=== PATIENT | male | born 1980 | race Caucasian/White ===

== ENCOUNTER 2023-11-27 06:55 | Day surgery (SDC) | payer BC ==
[2023-11-23 16:46] VITALS: BP 136/78
[~2023-11-27] VITALS: Ht 182.9 cm; Wt 90.9 kg
[~2023-11-27 06:55] MED LIST: ALLEGRA ALLERGY60 MG PO; CRESTOR10 MG PO; FISH OIL 1,0001 EAC6 PO; FLONASE ALLERG9.9 ML; FLOVENT HFA12 GM INH; GLUCOSA-CHOND-1 EACH PO; LIPITOR20 MG PO; OSTERA TABLET1 EACH PO; SINGULAIR10 MG PO; VP-VITE RX TAB1 EACH PO
[2023-11-27 07:15] VITALS: BP 135/88
--- NOTE | 2023-11-27 09:51 | NUR ---
11/27/23 0951 Rayne De Santiago 0940: PATIENT ARRIVES IN PACU AND IS RESPONSIVE TO BERNARD SULLIVAN'S QUESTIONS. HE RETURNS TO RESTING QUIETLY WITH HIS EYES CLOSED WHEN UNSTIMULATED. 0947: OXYGEN SATURATION REMAINS 100% ON 6L VIA MASK. OXYGEN MASK IS REMOVED AT THIS TIME. PATIENT IS AWAKE AND TALKING WITH ME. SURGICAL BONNET IS REMOVED.
--- NOTE | 2023-11-27 10:00 | NUR ---
PT ARRIVES BACK TO DAY SURGERY ALERT AND ORIENTED. PT UPDATED ON PLAN OF CARE. PT PROVIDED WATER, COFFEE, CRACKERS, AND PUDDING PER HIS REQUEST. PT'S MOTHER AND FATHER BROUGHT BACK TO THE ROOM. BED IN THE LOWEST POSITION, BED RAIL UP X1, CALL LIGHT PROVIDED.
[2023-11-27 10:01] VITALS: BP 139/79
[2023-11-27] MEDS ORDERED: COLACE100 MG PO (10:31)
[2023-11-27] MEDS ORDERED: OXYCODONE HCL5 MG PO (10:31)
--- NOTE | 2023-11-27 10:52 | NUR ---
PT UP ON THE EDGE OF THE BED. REPORTS NO DIZZINESS OR NAUSEA. PT AMBULATED TO THE RESTROOM AND BACK TO HIS ROOM. PT ABLE TO URINATE. PT DRESSING HIMSELF TO PREPARE TO GO HOME.
[2023-11-27 10:55] VITALS: BP 137/82
--- NOTE | 2023-11-27 11:00 | NUR ---
DC INSTRUCTIONS PROVIDED TO PT. ALL QUESTIONS ANSWERED. ICE PACK SENT HOME WITH PT. PT ABLE TO AMBULATE TO THE WHEELCHAIR AND IS TAKEN TO THE FRONT OF THE HOSPITAL. PT INTO THE PASSENGER SIDE OF THE VEHICLE.
--- NOTE | 2023-11-27 13:12 | OR ---
[facility] [address], [place] [address] Signed DATE OF OPERATION: 11/27/2023 SURGEON: Zander Purcell MD PREOPERATIVE DIAGNOSIS: Upper back lipoma (4.7 cm). POSTOPERATIVE DIAGNOSIS: Upper back lipoma (4.7 cm). PROCEDURE: Excision of subcutaneous mass (lipoma). ESTIMATED BLOOD LOSS: None. 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 He has had trouble with a 4.7 cm circular mass between his two shoulder blades over his spine. It is giving him trouble now even just lying on his back trying to sleep. We looked at that last year and he was not able to have it done at that time because of his job. He said it has gotten more firm and it is causing more pain. The ultrasound measured it at 4.7 cm last year. To his knowledge, it has never been infected or drained. I met with Maddie in the office. I explained to him this most likely is a lipoma. He understands the nature of the incision to remove it completely. There is risk of surgery including, but not limited to bleeding, infection, scarring, change in contour of the skin as well as recurrent lipomas in the same or other locations. He understands this was a bit large and it is right over the spine and his muscle. Therefore, we decided we will do it in the operating room under general anesthesia with good lighting and help from our OR nurses. He had expressed understanding and wished to proceed. PROCEDURE IN DETAIL: I met with Maddie and his mom in our preop area. We could all identify and easily agree on this subcutaneous mass between his two shoulder blades over the spine. We marked it appropriately. After this, Francisco was taken in the operating room and placed in the right lateral decubitus position under general LMA anesthesia. Appropriate padding and monitoring were placed. He was given preoperative antibiotics along with subcutaneous heparin. SCDs were utilized. He was prepped and draped in the usual sterile fashion. A vertical incision was made over the lesion and carried down around the lesion bluntly and with the cautery. As always, it went from the skin all the way Electronically Signed By: ZANDER PURCELL MD 11/27/23 1312 PATIENT NAME: MADDIE RUIZ OPERATIVE REPORT DATE OF : 76 REPORT #: [id number] PHYSICIAN: ZANDER PURCELL MD PCP: SARAH BLACKBURN PA-C REPORT IS CONFIDENTIAL AND NOT TO BE RELEASED WITHOUT AUTHORIZATION [facility] [address], [place] [address] Signed down to the muscle. The entire lesion was taken out en bloc and passed off the field. Local anesthetic was injected in the entire wound. The wound was irrigated and suctioned out until clear. The dermis was reapproximated with interrupted 3-0 subcuticular Monocryl sutures. The skin edges were reapproximated with a running 5-0 fast absorbing plain gut suture. Dry gauze and tape was applied. Francisco was rotated into the supine position and moved over to his hospital bed and taken into recovery room in stable condition. He was extubated in the OR. Zander Purcell MD ALB/MODL /[id number] cc: JIHAN Doan MD Copies: SARAH BLACKBURN PA-C, ANDREW L MD ~ Electronically Signed By: ZANDER PURCELL MD 11/27/23 1312 PATIENT NAME: MADDIE RUIZ OPERATIVE REPORT DATE OF : 76 REPORT #: [id number] PHYSICIAN: ZANDER PURCELL MD PCP: SARAH BLACKBURN PA-C REPORT IS CONFIDENTIAL AND NOT TO BE RELEASED WITHOUT AUTHORIZATION
--- NOTE | 2023-12-02 10:28 | PATH ---
[facility] [address] [facility] [address] [facility] [place], [place] [address] Signed SPECIMEN(S): A BACK SPECIMEN SOURCE: A. BACK CLINICAL HISTORY: Lipoma back, 4 cm FINAL PATHOLOGIC DIAGNOSIS: Soft tissue, back, excision: - Mature adipose tissue, clinically lipoma BRP MICROSCOPIC EXAMINATION: Histologic sections of all submitted blocks are examined by light microscopy. These findings, together with the gross examination, support the pathologic diagnosis. GROSS DESCRIPTION: The specimen, labeled and designated "Belkis D, " and designated on the requisition "subcutaneous lipoma back 4 cm mass," is received in formalin and consists of a 26 gram portion of yellow-chi adipose tissue that is 5.2 x 4.4 x 2.4 cm. The specimen is partially surfaced by a pink shaggy membranous tissue. The tissue is inked and serially sectioned to reveal a yellow homogeneous cut surface. [employer] sections are submitted in (A1-A2). FB (under the direct supervision of a pathologist) The Gross Description was prepared using a voice recognition system. The report was reviewed for accuracy; however, sound-alike word errors, addition and/or deletions may occur. If there is any question about this report, please contact Client Services. ADDITIONAL NOTES: Immunohistochemical and/or in situ hybridization studies if performed in this case included appropriate positive controls that reacted as expected. This test was developed and its performance characteristics determined by [facility]. It has not been cleared or approved by the U.S. Food and Drug Administration. The FDA has determined that such clearance or approval is not necessary. This test is used for clinical purposes. It should not be regarded as investigational or for research. [facility] is certified under the PATIENT NAME: MADDIE RUIZ PATHOLOGY DATE OF : 76 REPORT #: [id number] PHYSICIAN: ARJUN MOTA PCP: SARAH BLACKBURN PA-C REPORT IS CONFIDENTIAL AND NOT TO BE RELEASED WITHOUT AUTHORIZATION [facility] [address] [place] [address] Signed Clinical Laboratory Improvement Amendments of 1988 (CLIA) as qualified to perform high complexity clinical laboratory testing. PERFORMING LABORATORY: Technical component was [place] [address] (CLIA# [id number]). Professional interpretation was performed by [facility] [place], [address] [place] [address] (CLIA#: [id number]). Diagnostician: Nathaniel Mercedes MD Pathologist Electronically Signed 12/02/2023 Copies: ~ PATIENT NAME: MADDIE RUIZ PATHOLOGY DATE OF : 76 REPORT #: [id number] PHYSICIAN: ARJUN MOTA PCP: SARAH BLACKBURN PA-C REPORT IS CONFIDENTIAL AND NOT TO BE RELEASED WITHOUT AUTHORIZATION
== END 2023-11-27 11:00 | disposition home or self-care (01) ==
LOC: DS 06:55
PROVIDERS: ATTEND Colon & Rectal Surgery
PROC: 0JB70ZZ Excision of Back Subcutaneous Tissue and Fascia, Open Approach (ICD-10-PCS; principal; 2023-11-27 08:40)
DX: D17.1 Benign lipomatous neoplasm of skin and subcutaneous tissue of trunk (principal); E78.5 Hyperlipidemia, unspecified; J45.909 Unspecified asthma, uncomplicated
CPT/HCPCS: 00300; J0131; J0690; J1100; J1644; J1885; J2001; J2405; J2704; J3010; J7121